=== PATIENT | female | born 1950 | race Two or more races ===

== ENCOUNTER 2020-02-08 21:59 | Emergency (ER) | payer MEDICARE ==
[~2020-02-08] VITALS: Ht 152.4 cm; Wt 65.0 kg
[2020-02-08 22:01] VITALS: BP 144/51
[2020-02-08] MEDS ORDERED: HYDROCODONE/ACETAMINOPHEN 5/325MG TABLET PO ONE (23:00)
[2020-02-08 23:25] LABS: BASOPHILS % 0.5 % (0.0-2.0); CHLORIDE 107 mEq/L (98-107); EOSINOPHILS % 1.3 % (0.0-5.0); HEMATOCRIT. 42.3 % (36.0-48.0); HEMOGLOBIN. 14.1 g/dL (12.0-16.0); MEAN CORPUSCULAR VOLUME 92.7 fL (81.0-99.0); MEAN PLATELET VOLUME 8.9 fl (7.4-10.4); MONOCYTES % 5.7 % (2.0-8.0); NEUTROPHILS % 74.5 % (40.0-76.0); PLATELET 245 x1000/uL (130-400); RED BLOOD CELL COUNT 4.56 mill/uL (4.2-5.4); RED CELL DISTRIBUTION WIDTH 13.8 % (11.6-14.6)
[2020-02-09] MEDS ORDERED: KETOROLAC 60MG/2ML VIAL IM ONE (00:45)
== END 2020-02-09 02:07 | disposition home or self-care (01) ==
LOC: ER 21:59
DX: M25.561 Pain in right knee (principal); I10 Essential (primary) hypertension
CPT/HCPCS: 36415; 73560; 80053; 84550; 85025; 85651; 93971; 96372; 99285; J1885